=== PATIENT | male | born 1960 | race Caucasian/White ===

== ENCOUNTER 2021-06-15 18:52 | Emergency (ER) | payer OTHER ==
[~2021-06-15] VITALS: Ht 172.7 cm; Wt 86.4 kg
[~2021-06-15 18:52] MED LIST: IBUP100T36 PO
[2021-06-15] MEDS ORDERED: LIDOCAINE 1%/EPI 1:100,000 30 ML VIAL SQ ONE (19:30)
[2021-06-15] MEDS ORDERED: TRANEXAMIC ACID 1,000 MG/10 ML VIAL IV ONE (19:45)
[2021-06-15 21:20] VITALS: BP 146/76
== END 2021-06-15 21:37 | disposition home or self-care (01) ==
LOC: EMS 18:53
DX: S09.93XA Unspecified injury of face, initial encounter (principal); E11.9 Type 2 diabetes mellitus without complications; X58.XXXA Exposure to other specified factors, initial encounter; Y93.89 Activity, other specified; Y92.89 Other specified places as the place of occurrence of the external cause; Y99.8 Other external cause status
CPT/HCPCS: 82962; 96374; 99283; J3490 ×2